=== PATIENT | male | born 1960 | race Caucasian/White ===

== ENCOUNTER 2025-02-05 05:24 | Day surgery (SDC) | payer OTHER ==
[~2025-02-05] VITALS: Ht 167.6 cm; Wt 97.7 kg
[~2025-02-05 05:24] MED LIST: GABA-1181 PO; MONT-40 PO; OMEP20CA12 PO
[2025-02-05] MEDS ORDERED: SODIUM CHLORIDE 0.9% 1,000 ML ONE (06:30)
[2025-02-05] MEDS ORDERED: FentaNYL CITRATE PF 100 MCG/2 ML VIAL ONE (08:06)
[2025-02-05] MEDS ORDERED: MIDAZOLAM HCL 2 MG/2 ML VIAL ONE (08:06)
[2025-02-05] MEDS: SODIUM CHLORIDE 0.9% 1,000 ML IV ONE (08:41)
[2025-02-05 09:42] VITALS: PULSE 83; RESP 20; O2SAT 99
[2025-02-05] MEDS ORDERED: MethylPREDNISolone SOD SUCC 125 MG/2 ML VIAL ONE (09:57)
[2025-02-05] MEDS: MethylPREDNISolone SOD SUCC 125 MG/2 ML VIAL IVP ONE (10:18)
[2025-02-05] MEDS ORDERED: ALBUTEROL SULFATE 2.5 MG/0.5 ML NEB SOLUTION NEB ONE (12:21)
[2025-02-05] MEDS ORDERED: LIDOCAINE 4% 50 ML SOLUTION ONE (12:21)
[2025-02-05] MEDS ORDERED: BENZOCAINE 20% 50 MCG/SPRAY 57 GM ONE (12:21)
[2025-02-05] MEDS ORDERED: LIDOCAINE 2% 11 ML JELLY ONE (12:21)
== END 2025-02-05 14:00 | disposition home or self-care (01) ==
LOC: SURGERY 05:24
PROVIDERS: ATTEND Internal Medicine Critical Care Medicine
DX: R05.3 Chronic cough (principal); R04.2 Hemoptysis; J38.4 Edema of larynx; F12.90 Cannabis use, unspecified, uncomplicated; B37.0 Candidal stomatitis; Z87.891 Personal history of nicotine dependence; Z98.890 Other specified postprocedural states; Z79.899 Other long term (current) drug therapy
CPT/HCPCS: 31623; 31624; 87206; 87101; 87220; 87070; 94640; 71045; 87015; J3010; J2250; J2919; J7030; 88108; J7613; Z7610